=== PATIENT | male | born 1970 | race Hispanic/Latino ===

== ENCOUNTER 2019-04-24 18:30 | Emergency (ER) | payer OTHER, SELFPAY ==
[2019-04-24] MEDS ORDERED: LIDOCAINE 1% MPF 5 ML VIAL ONE (20:03)
--- NOTE | 2019-04-24 21:16 | ER ---
Nurse's Notes [facility] Name: Adolfo Dhaliwal Age: 49 yrs Sex: Male : 1970 Arrival Date: 04/24/2019 Time: 18:32 Bed 17 Private MD: Diagnosis: Topaceous gouty arthritis right elbow Presentation: 04/24 18:37 Presenting complaint: Child states: daughter states that patient is not supposed to eat ss a certain kind of meat because it will make his joints swell. Pt reports he ate a pork chop yesterday and hit his elbow twice since then. Significant swelling noted to R elbow with pustule that is visualized. Transition of care: patient was not received from another setting of care. Onset of symptoms was April 23, 2019. Risk Assessment: Do you want to hurt yourself or someone else? Patient reports no desire to harm self or others. Initial Sepsis Screen: Does the patient meet any 2 criteria? No. Patient's initial sepsis screen is negative. Does the patient have a suspected source of infection? Yes: Skin breakdown/wound. Care prior to arrival: None. 18:37 Method Of Arrival: Ambulatory ss 18:37 Acuity: JOSEE 3 ss Historical: - Allergies: 18:39 No Known Allergies; ss - PMHx: 18:39 Hypertension; ss - PSHx: 18:39 None; ss - Immunization history:: Adult Immunizations unknown. - Social history:: Smoking status: Patient/guardian denies using tobacco. - Ebola Screening: : Patient denies exposure to infectious person Patient denies travel to an Ebola-affected area in the 21 days before illness onset. Screenin:35 Abuse screen: Denies threats or abuse. Denies injuries from another. Nutritional rr5 screening: No deficits noted. Tuberculosis screening: No symptoms or risk factors identified. Fall Risk None identified. Total Verma Fall Scale indicates No Risk (0-24 pts). Assessment: 19:10 General: Appears in no apparent distress. uncomfortable, Behavior is calm, cooperative, rr5 appropriate for age. Pain: Complains of pain in right elbow Pain does not radiate. Pain currently is 7 out of 10 on a pain scale. Quality of pain is described as aching, Pain began gradually, Is intermittent. Neuro: Level of Consciousness is awake, alert, obeys commands, Oriented to person, place, time, situation, Appropriate for age. Cardiovascular: Capillary refill < 3 seconds Patient's skin is warm and dry. Respiratory: Airway is patent Respiratory effort is even, unlabored, Respiratory pattern is regular, symmetrical. GI: No signs and/or symptoms were reported involving the gastrointestinal system. : No signs and/or symptoms were reported regarding the genitourinary system. EENT: No signs and/or symptoms were reported regarding the EENT system. Derm: Skin is intact, Skin temperature is warm Abscess located on right elbow is quarter sized, is red, is raised, white spot at the center of abscess. 19:10 Musculoskeletal: Capillary refill < 3 seconds, Range of motion: intact in all rr5 extremities. 20:35 Reassessment: specimen from the wound sent to laboratory awaiting for result. rr5 21:30 Reassessment: Patient appears in no apparent distress at this time. Patient is alert, rr5 oriented x 3, equal unlabored respirations, skin warm/dry/pink. discharge instruction given and explained without complaints made. instructed to take his BP medication. no dizziness, denies any discomfort Patient denies pain at this time. Patient states feeling better. Patient states symptoms have improved. Vital Signs: 18:35 BP 189 / 114; Pulse 82; Resp 16; Temp 98.2(TE); Pulse Ox 96% on R/A; Weight 81.19 kg; ss Height 5 ft. 6 in. (167.64 cm); Pain 7/10; 19:35 BP 182 / 115; Pulse 83; Resp 19; Pulse Ox 99% ; Pain 7/10; rr5 21:00 BP 172 / 110; Pulse 80; Resp 17; Temp 98; Pulse Ox 99% on R/A; rr5 21:28 BP 171 / 95; Pulse 81; Resp 16; Temp 97.8; Pulse Ox 99% ; rr5 18:35 Body Mass Index 28.89 (81.19 kg, 167.64 cm) ED Course: 18:32 Patient arrived in ED. as 18:35 Arm band placed on right wrist. ss 18:38 Triage completed. ss 19:10 Ramez Meraz RN is Primary Nurse. rr5 19:11 Dewayne Arreola MD is Attending Physician. ps1 19:35 Patient has correct armband on for positive identification. Bed in low position. Call rr5 light in reach. 20:15 Assist provider with aspiration of right elbow using 18 gauge needle, Lidocaine, fluid rr5 removed was Specimen sent to lab. white thick specimen obtain Set up for procedure. Performed by Dewayne Arreola MD Dressed with 4X4s, Neosporin, kerlix Patient tolerated well. 21:13 Froilan Ogden MD is Referral Physician. ps1 21:29 Patient did not have IV access during this emergency room visit. rr5 Administered Medications: 20:10 Drug: Lidocaine (1 %) 5 ml {Note: given by dr. arreola.} Volume: 5 ml; Route: rr5 Infiltration; 21:29 Follow up: Response: No adverse reaction rr5 Outcome: 21:15 Discharge ordered by MD. ps1 21:29 Discharged to home ambulatory, with family. rr5 21:29 Condition: stable 21:29 Discharge instructions given to patient, family, Instructed on discharge instructions, follow up and referral plans. medication usage, Demonstrated understanding of instructions, follow-up care. 21:31 Patient left the ED. rr5 Signatures: Jillian Gutierrez Shelby, RN RN ss Dewayne Arreola MD MD ps1 Ramez Meraz, RN RN rr5
--- NOTE | 2019-04-24 21:17 | EDPHYS ---
Physician Documentation [facility] Name: Adolfo Dhaliwal Age: 49 yrs Sex: Male : 1970 Arrival Date: 04/24/2019 Time: 18:32 Bed 17 Private MD: ED Physician Dewayne Arreola HPI: 04/24 19:47 This 49 yrs old Male presents to ER via Ambulatory with complaints of Abscess. ps1 19:47 Patient has a history of bursitis localized to right elbow for > 1 month. States that ps1 he takes allopurinol. Over last two days he started getting inflammation localized to the tip of the bursal swelling. Appears white like toothpaste with associated erythema. He is afebrile. No new trauma. . Historical: - Allergies: 18:39 No Known Allergies; ss - PMHx: 18:39 Hypertension; ss - PSHx: 18:39 None; ss - Immunization history:: Adult Immunizations unknown. - Social history:: Smoking status: Patient/guardian denies using tobacco. - Ebola Screening: : Patient denies exposure to infectious person Patient denies travel to an Ebola-affected area in the 21 days before illness onset. ROS: 19:47 Constitutional: Negative for fever, chills, and weight loss, Eyes: Negative for injury, ps1 pain, redness, and discharge, ENT: Negative for injury, pain, and discharge, Cardiovascular: Negative for chest pain, palpitations, and edema, Respiratory: Negative for shortness of breath, cough, wheezing, and pleuritic chest pain, Abdomen/GI: Negative for abdominal pain, nausea, vomiting, diarrhea, and constipation, Neuro: Negative for headache, weakness, numbness, tingling, and seizure, Psych: Negative for depression, anxiety, suicide ideation, homicidal ideation, and hallucinations. 19:47 MS/extremity: Positive for swelling, tenderness, warmth, of the right elbow. Exam: 19:47 Constitutional: This is a well developed, well nourished patient who is awake, alert, ps1 and in no acute distress. Head/Face: Normocephalic, atraumatic. Eyes: Pupils equal round and reactive to light, extra-ocular motions intact. Lids and lashes normal. Conjunctiva and sclera are non-icteric and not injected. Chest/axilla: Normal chest wall appearance and motion. Nontender with no deformity. No lesions are appreciated. Cardiovascular: Regular rate and rhythm. No gallops, murmurs, or rubs. Normal PMI, no JVD. No pulse deficits. Respiratory: Lungs have equal breath sounds bilaterally, clear to auscultation and percussion. No rales, rhonchi or wheezes noted. No increased work of breathing, no retractions or nasal flaring. Skin: Warm, dry with normal turgor. Normal color with no rashes, no lesions, and no evidence of cellulitis. Neuro: Awake and alert, GCS 15, oriented to person, place, time, and situation. Cranial nerves II-XII grossly intact. Sensory grossly intact. 19:47 Musculoskeletal/extremity: Extremities: grossly normal except: noted in the right elbow: pain, swelling, tenderness, Appears to be more tophaceous in nature. Possible inflammatory\E\. Vital Signs: 18:35 BP 189 / 114; Pulse 82; Resp 16; Temp 98.2(TE); Pulse Ox 96% on R/A; Weight 81.19 kg; ss Height 5 ft. 6 in. (167.64 cm); Pain 7/10; 19:35 BP 182 / 115; Pulse 83; Resp 19; Pulse Ox 99% ; Pain 7/10; rr5 21:00 BP 172 / 110; Pulse 80; Resp 17; Temp 98; Pulse Ox 99% on R/A; rr5 21:28 BP 171 / 95; Pulse 81; Resp 16; Temp 97.8; Pulse Ox 99% ; rr5 18:35 Body Mass Index 28.89 (81.19 kg, 167.64 cm) Procedures: 21:16 Joint Treatment: Aspiration of right elbow using 18 gauge needle, Removed tophaceous ps1 gout Dressed with 4x4s, Patient tolerated well. MDM: 21:12 Data reviewed: vital signs, nurses notes, lab test result(s), and as a result, I will ps1 discharge patient. Counseling: I had a detailed discussion with the patient and/or guardian regarding: the historical points, exam findings, and any diagnostic results supporting the discharge/admit diagnosis, the need for outpatient follow up, a orthopedic surgeon. 21:15 Patient medically screened. ps1 04/24 20:11 Order name: Fluid Crystals; Complete Time: 21:12 ps1 Administered Medications: 20:10 Drug: Lidocaine (1 %) 5 ml {Note: given by dr. arreola.} Volume: 5 ml; Route: rr5 Infiltration; 21:29 Follow up: Response: No adverse reaction rr5 Disposition: 04/24/19 21:15 Discharged to Home. Impression: Topaceous gouty arthritis right elbow. - Condition is Stable. - Discharge Instructions: Gout. - Medication Reconciliation Form, Thank You Letter, Antibiotic Education, Prescription Opioid Use, Work release form form. - Follow up: Froilan Ogden MD; When: Upon discharge from the Emergency Department; Reason: Further diagnostic work-up, Recheck today's complaints. Follow up: Emergency Department; When: As needed; Reason: Fever > 102 F, Worsening of condition. - Problem is an ongoing problem. - Symptoms have worsened. Signatures: Dispatcher [employer] EDID Keisha Starkey RN RN ss Dewayne Arreola MD MD ps1 Ramez Meraz RN RN rr5 Corrections: (The following items were deleted from the chart) 20:45 20:11 FLUID CELL COUNT,BODY+H.LAB.BRZ ordered. [facility] EDMS 21:31 21:15 04/24/2019 21:15 Discharged to Home. Impression: Topaceous gouty arthritis right rr5 elbow. Condition is Stable. Forms are Medication Reconciliation Form, Thank You Letter, Antibiotic Education, Prescription Opioid Use. Follow up: Froilan Ogden; When: Upon discharge from the Emergency Department; Reason: Further diagnostic work-up, Recheck today's complaints. Follow up: Emergency Department; When: As needed; Reason: Fever > 102 F, Worsening of condition. Problem is an ongoing problem. Symptoms have worsened. ps1
== END 2019-04-24 21:31 | disposition home or self-care (01) ==
LOC: ER 18:30
PROC: 0RJJ3ZZ Inspection of Right Shoulder Joint, Percutaneous Approach (ICD-10-PCS; principal; 2019-04-24)
DX: M10.011 Idiopathic gout, right shoulder (principal); I10 Essential (primary) hypertension
CPT/HCPCS: 89060; 99284

== ENCOUNTER 2025-03-09 23:46 | Emergency (ER) | payer SELFPAY ==
--- OUTSIDE RECORDS SUMMARY | 2025-03-09 23:48 | XMS REPORT | Continuity of Care Document ---
Author Name Unknown Address [address] [place] [id number] [facility] Address [address] [address] [address] [place] [address] Care Team Providers Care Operations Engineer Name Role Phone [facility]_WalkInSchedul Attending Clinician Unavail able [facility]WalkInSchedul Admitting Clinician Unavail able Payers Payer Name Policy Type Policy Number Effective Date Expirati on Date Source Problems Condition Name Condition Details Condition Category Status Onset Date Resolution Date Last Treatment Date Treating Clinician Comments Source Gout Gout Problem Active 2022-10 00:00: 00 [facility] Essential hypertensi on Essential Hypertensi on Problem Active 2022-10 00:00: 00 [facility] Social History Smoking Status Start Date Stop Date Source Never Smoker [facility] Medications Ordered Medication Name Filled Medication Name Start Date Stop Date Current Medication? Ordering Clinician Indication Dosage Frequency Signature (SIG) Comments Components Source amlodipine 5 mg tablet Take 1 tablet every day by oral route for 90 days. amlodipine 5 mg tablet Take 1 tablet every day by oral route for 90 days. No 1 Q1D amlodipine 5 mg tablet Take 1 tablet every day by oral route for 90 days. [facility] bisoprolol fumarate 10 mg tablet Take 1 tablet every day by oral route. bisoprolol fumarate 10 mg tablet Take 1 tablet every day by oral route. No 1 Q1D bisoprolol fumarate 10 mg tablet Take 1 tablet every day by oral route. [facility] naproxen 500 mg tablet Take 1 tablet twice a day by oral route as needed. naproxen 500 mg tablet Take 1 tablet twice a day by oral route as needed. No 1 BID naproxen 500 mg tablet Take 1 tablet twice a day by oral route as needed. [facility] olmesartan 40 mg tablet Take 1 tablet every day by oral route. olmesartan 40 mg tablet Take 1 tablet every day by oral route. No 1 Q1D olmesartan 40 mg tablet Take 1 tablet every day by oral route. [facility] prednisone 20 mg tablet Take 2 tablets every day by oral route. prednisone 20 mg tablet Take 2 tablets every day by oral route. No 2 Q1D prednisone 20 mg tablet Take 2 tablets every day by oral route. [facility] allopurinol 200 mg tablet Take 1 tablet twice a day by oral route for 90 days. allopurinol 200 mg tablet Take 1 tablet twice a day by oral route for 90 days. No 1 BID allopurino l 200 mg tablet Take 1 tablet twice a day by oral route for 90 days. [facility] Immunizations Ordered Immunization Name Filled Immunization Name Date Status Comments Source tetanus toxoid, unspecified formulation tetanus toxoid, unspecified formulation Unknown Completed [facility] Vital Signs Vital Name Observation Time Observation Value Comments S ource BMI (Body Mass Index) 2024-03-26 00:00:00 26.6 kg/m2 [facility] BP Systolic 2024-03-26 00:00:00 150 mm[Hg] [facility] Height 2024-03-26 00:00:00 67 [in_i] [facility] BP Diastolic 2024-03-26 00:00:00 92 mm[Hg] [facility] Body Weight 2024-03-26 00:00:00 2716.8 [oz_av] [facility] Body Weight 2024-01-11 00:00:00 2722 [oz_av] [facility] BP Systolic 2024-01-11 00:00:00 138 mm[Hg] [facility] BP Diastolic 2024-01-11 00:00:00 83 mm[Hg] [facility] Height 2024-01-11 00:00:00 67 [in_i] [facility] BMI (Body Mass Index) 2024-01-11 00:00:00 26.6 kg/m2 [facility] Encounters Start Date/Time End Date/Time Encounter Type Admission Type Attending Clinicians Care Facility Care Department Encounter ID Source 2024-03-26 00:00:00 2024-03-26 00:00:00 [place], [place]SE [place]OVER: [id number] [id number] , Ph. [facility] - _CPC_Need fer Office [id number] [facility] 2024-01-11 00:00:00 2024-01-11 00:00:00 Outpatient [facility]Walk InSchedul [facility] [id number] [facility] 2024-01-11 00:00:00 2024-01-11 00:00:00 [place], HOUSE MOVER: [address] [phone] , Ph. [facility] - GC_CPC_Need fer Office [id number] [facility] 2023-10-04 00:00:00 2023-10-04 00:00:00 Outpatient [facility]Walk InSchedul [facility] [id number] [facility] 2023-10-03 00:00:00 2023-10-03 00:00:00 Outpatient [facility] [id number] [facility]
[2025-03-10] MEDS ORDERED: ONDANSETRON 4 MG/2 ML VIAL ONE (00:04)
[2025-03-10] MEDS ORDERED: MORPHINE 4 MG/ML SYR ONE (00:04)
[2025-03-10 00:54] LABS: Absolute Eosinophils 0.1 K/uL (0-0.5); Absolute Lymphocytes (CBC) 0.2 K/uL (0.7-4.9); Absolute Monocytes 0.7 K/uL (0.1-1.3); Absolute Neutrophil 13.5 K/uL (1.8-8.0); Basophils % 0.1 % (0-1.3); Eosinophils % 0.6 % (0-4.4); Hematocrit 42.9 % (39.6-49.0); Hemoglobin 14.9 g/dL (13.6-17.9); Lymphocytes % 1.5 % (15.3-44.8); MCH 33.8 pg (27.0-35.0); MCHC 34.6 g/dL (32.0-36.0); MCV 97.5 fL (80-100); MPV 6.5 fL (7.6-11.3); Neutrophils % 92.8 % (41.7-73.7); Platelets 394 thou/uL (152-406); Red Cell Distribution Width 12.8 % (12.1-15.2)
[2025-03-10 00:55] LABS: Anion Gap 13.3 mEq/L (5.0-15.0); Potassium 4.3 mEq/L (3.5-5.1)
[2025-03-10] MEDS ORDERED: FENTANYL CITR 100 MCG/2 ML ONE (01:55)
[2025-03-10] MEDS ORDERED: droPERidol 5 MG/2 ML VIAL ONE (01:55)
[2025-03-10] MEDS ORDERED: METOCLOPRAMIDE 10 MG/2mL INJ ONE (01:55)
[2025-03-10] MEDS ORDERED: NA CHLORIDE 0.9% 100 ML ONE (01:56)
--- NOTE | 2025-03-10 01:57 | RAD REPORT ---
EXAM: CT Lumbar Spine Without Intravenous Contrast CLINICAL HISTORY: The patient is 54 years old and is Male; PAIN TECHNIQUE: Axial computed tomography images of the lumbar spine without intravenous contrast. Sagittal and c oronal reformatted images were created and reviewed. This CT exam was performed using one or more of the following dose reduction techniques: automated exposure control, adjustment of the mA and/or kV according to patient size, and/or use of iterative reconstruction technique. COMPARISON: No relevant prior studies available. FINDINGS: VERTEBRAE: The vertebral body heights and alignment are maintained. There is no acute fracture. DISCS/SPINAL CANAL/NEURAL FORAMINA: Ankylosis of the bilateral SI joints is noted. Intervertebr al disc space narrowing with anterior osteophyte formation from L2 through S1 is noted. Disc bulges at L3-S1 causing effacement upon the anterior thecal sac and bilateral neural foraminal narrowing is noted most prominent at L4-L5. SOFT TISSUES: The soft tissues are normal. IMPRESSION: Moderate spondylosis of the lumbar spine most prominent at L4-L5. Electronically signed by: Lenora Mcgill MD 03/10/2025 01:54 AM CDT Due to temporary technical issues with the PACS/[employer] reporting system, reports are being ramez d by the in-house radiologist without review as a courtesy to ensure prompt reporting the interpreting radiologist is fully responsible for the content of the report. Transcribed Date/Time: 03/10/2025 1:57 AM
[2025-03-10 03:08] LABS: Band Neutrophils 17 % (0-1); Blood Morphology Comment NOT SEEN (NOT SEEN); Differential Total Cells Count 100; Lymphocytes 2 % (15-42); Monocytes 4 % (0-10); Platelet Estimate ADEQ; Reactive Lymphocytes 3 %; Segmented Neutrophils 74 % (40-80)
[2025-03-10] MEDS ORDERED: KETAMINE HCL IN 0.9 % NACL 50 MG/5 ML SYRINGE IV ONE (03:09)
[2025-03-10 03:10] LABS: Specific Gravity 1.019 (1.005-1.030); Sqamous Epithelial <5 /HPF (None Seen); Urine Bacteria None Seen /HPF (<20); Urine Bilirubin NEGATIVE (Negative); Urine Blood Negative (Negative); Urine Clarity Clear (Clear); Urine Color Yellow (Yellow); Urine Culture Reflex Order NOT NEEDED; Urine Glucose 1+ (Negative); Urine Ketones NEGATIVE (Negative); Urine Microscopic Reflex YN ORDER UMIC; Urine Mucus Slight /HPF (None Seen); Urine Nitrite NEGATIVE (Negative); Urine Protein TRACE (Negative); Urine RBC <5 /HPF (None Seen); Urine Urobilinogen Normal (Normal); Urine WBC None Seen /HPF (<5); Urine pH 5.5 (5.0-7.0)
[2025-03-10] MEDS ORDERED: HYDROMORPHONE HCL 1 MG/ML INJ ONE ×2 (03:39→05:41)
--- NOTE | 2025-03-10 03:47 | EDPHYS ---
Physician Documentation [facility] Name: Adolfo Dhaliwal Age: 54 yrs Sex: Male : 1970 Arrival Date: 03/09/2025 Time: 23:46 Bed 7 Private MD: ED Physician Silas Jimenez HPI: 03/10 00:07 This 54 yrs old Male presents to ER via Wheelchair with complaints of Low Back kb Pain, unable to walk due to pain. 00:07 Pt is a 54 year old male who presents for pain across low back that started upon waking kb this morning. Denies injury or trauma. Denies urinary symptoms. States he has not been able to walk due to pain. Denies bowel/bladder incontinence/issues. . Historical: - Allergies: 00:02 No Known Allergies; vc1 - Home Meds: 00:02 hydrocortisone 0.5 % Topical cream [Active]; hydroxyzine HCl 25 mg Oral tablet 3 times vc1 per day [Active]; prednisone 10 mg Oral Tablet, Dose Pack [Active]; bisoprolol fumarate 10 mg oral tablet daily [Active]; ardosons [Active]; - PMHx: 00:02 Hypertension; Rheumatoid arthritis; vc1 - PSHx: 00:02 None; vc1 - Immunization history:: Client reports having NOT received the Covid vaccine. - Infectious Disease History:: Denies. - Social history:: Smoking status: Patient denies any tobacco usage or history of. ROS: 00:05 Constitutional: As per HPI kb Exam: 00:05 Constitutional: This is a well developed, well nourished patient who is awake, alert, kb and in no acute distress. Head/Face: Normocephalic, atraumatic. ENT: Moist Mucous membranes Cardiovascular: Regular rate Respiratory: Respirations even and unlabored. No increased work of breathing. Talking in full sentences MS/ Extremity: Pulses equal, no cyanosis. Neurovascular intact. Full, normal range of motion. Neuro: Awake and alert, GCS 15, oriented to person, place, time, and situation. 00:05 Back: pain, that is severe, of the low back area, ROM is painful, decreased, CVA tenderness, is absent, vertebral tenderness, is appreciated at L4 and L5, 00:05 Skin: rash a moderate rash is noted, on the low back area, pt reports this rash is chronic, Vital Signs: 00:00 BP 143 / 85; Pulse 73; Resp 14; Temp 98.8; Pulse Ox 100% ; Weight 74.84 kg; Height 5 vc1 ft. 6 in. ; Pain 10/10; 01:34 BP 112 / 72; Pulse 73; Resp 18; Temp 98.8; Pulse Ox 99% ; Pain 6/10; bm8 02:55 BP 110 / 75; Pulse 70; Resp 16; Temp 98.8; Pulse Ox 100% ; Pain 7/10; bm8 04:45 BP 121 / 78; Pulse 75; Resp 16; Temp 98.7; Pulse Ox 100% ; Pain 7/10; bm8 05:30 BP 107 / 60; Pulse 81; Resp 16; Pulse Ox 100% ; jj7 06:30 BP 111 / 62; Pulse 100; Resp 20; Temp 97.9; Pulse Ox 100% ; jj7 00:00 Body Mass Index 26.63 (74.84 kg, 167.64 cm) vc1 00:00 Pain Scale: Adult vc1 01:34 Pain Scale: Adult bm8 02:55 Pain Scale: Adult bm8 04:45 Pain Scale: Adult bm8 [place] Coma Score: 01:34 Eye Response: spontaneous(4). Motor Response: obeys commands(6). Verbal Response: bm8 oriented(5). Total: 15. 02:55 Eye Response: spontaneous(4). Motor Response: obeys commands(6). Verbal Response: bm8 oriented(5). Total: 15. 04:45 Eye Response: spontaneous(4). Motor Response: obeys commands(6). Verbal Response: bm8 oriented(5). Total: 15. MDM: 03/09 23:50 Medical Screening Exam initiated kb 03/10 00:09 Data reviewed: vital signs, nurses notes. Historians other than the Patient: Family kb Member: family. ED course: Pt was able to transfer from wheelchair to stretcher with assist. 00:46 Transition of care: After a detail discussion of the patient's case, care is kb transferred to Silas Jimenez MD. 03:42 Differential diagnosis: arthritis, strain, fracture, sciatica, contusion, Herniated sp4 disc UTI. ED course: CT Lumbar Spine Without Intravenous Contrast CLINICAL HISTORY: The patient is 54 years old and is Male; PAIN TECHNIQUE: Axial computed tomography images of the lumbar spine without intravenous contrast. Sagittal and coronal reformatted images were created and reviewed. This CT exam was performed using one or more of the following dose reduction techniques: automated exposure control, adjustment of the mA and/or kV according to patient size, and/or use of iterative reconstruction technique. COMPARISON: No relevant prior studies available. FINDINGS: VERTEBRAE: The vertebral body heights and alignment are maintained. There is no acute fracture. DISCS/SPINAL CANAL/NEURAL FORAMINA: Ankylosis of the bilateral SI joints is noted. Intervertebral disc space narrowing with anterior osteophyte formation from L2 through S1 is noted. Disc bulges at L3-S1 causing effacement upon the anterior thecal sac and bilateral neural foraminal narrowing is noted most prominent at L4-L5. SOFT TISSUES: The soft tissues are normal. IMPRESSION: Moderate spondylosis of the lumbar spine most prominent at L4-L5. . 04:09 ED course: Patient was discussed with neurology at [facility] and sp4 accepted as a transfer to the hospital floor for additional evaluation.. 05:04 Consideration of Admission/Observation Escalation of care including sp4 admission/observation considered. Management of patient was discussed with the following: Side Piece Coverer: [facility] . ED course: Accepted by [facility]. 05:23 ED course: CT revealed - IMPRESSION: Moderate spondylosis of the lumbar spine most sp4 prominent at L4-L5. Electronically signed by: Lneora Mcgill MD 03/10/2025 01:54 AM. ED course: Patient could not be accommodated at [facility] . [facility] . 03/09 23:56 Order name: CBC with Diff; Complete Time: 03:21 kb 03/09 23:56 Order name: BMP; Complete Time: 03:21 kb 03/09 23:56 Order name: UA Rfx Jorge Cult if indicated; Complete Time: 03:21 kb 03/10 01:00 Order name: Manual Differential; Complete Time: 03:21 EDMS 03/09 23:56 Order name: CT Lumbar Spine Wo Con kb 03/09 23:56 Order name: IV Start; Complete Time: 00:13 kb Administered Medications: 00:13 Drug: morphine IVP or IV 4 mg IVP once over 4 mins Route: IVP; Infused Over: 4 mins; bm8 Site: left forearm; 01:33 Follow up: Response: No adverse reaction bm8 00:13 Drug: Ondansetron IVP 4 mg IVP once; over 2 minutes Route: IVP; Site: left forearm; bm8 01:33 Follow up: Response: No adverse reaction bm8 02:06 Drug: fentaNYL (PF) IVP 100 mcg IVP once Route: IVP; Site: left forearm; bm8 03:42 Follow up: Response: Pain is unchanged, physician notified jj7 02:06 Drug: metoCLOPramide IVP 10 mg IVP once; over 1 to 2 minutes Route: IVP; Site: left bm8 forearm; 03:42 Follow up: Response: No adverse reaction jj7 02:06 Drug: Droperidol IVP 2.5 mg IVP once Route: IVP; Site: left forearm; bm8 03:41 Follow up: Response: Pain is unchanged, physician notified jj7 03:13 Drug: Ketamine IVP 50 mg IVP once Route: IVP; Site: left forearm; bm8 03:41 Follow up: Response: Pain is unchanged, physician notified jj7 03:41 Drug: HYDROmorphone IVP 1 mg IVP once Route: IVP; Site: left antecubital; jj7 04:46 Follow up: Response: No adverse reaction bm8 05:44 Drug: HYDROmorphone IVP 1 mg IVP once Route: IVP; Site: left forearm; bm8 06:50 Follow up: Response: Pain is decreased jj7 06:45 Drug: Haloperidol IVP 5 mg IVP once Route: IVP; Site: left forearm; jj7 06:50 Follow up: Response: No adverse reaction jj7 Disposition: 03:35 Co-signature as Attending Physician, Silas Jimenez MD I agree with the assessment sp4 and plan of care. I reviewed the patient's care provided by the Advanced Practice Provider and agree with the diagnosis and treatment plan. Disposition Summary: 03/10/25 03:46 Transfer Ordered Notes: Reason: Higher level of care sp4 Condition: Stable sp4 Problem: new sp4 Symptoms: have improved sp4 Transfer Location: [facility](03/10/25 05:25) sp4 Accepting Physician: [facility](03/10/25 06:50) jj7 Diagnosis - Cauda equina syndrome sp4 - Lumbar disc herniation L3-L4 level and L4-L5 level with cauda equina compression sp4 - Acute lumbar radiculopathy sp4 - Bilateral lower extremity weakness sp4 Forms: - Medication Reconciliation Form sp4 - SBAR form sp4 Signatures: Dispatcher [employer] EDMS Rayne Mejia, STRAIGHTENING PRESS OPERATOR-C STRAIGHTENING PRESS OPERATOR-Ckb Ling Shelley RN RN vc1 Nely Bustillos RN RN jj7 Silas Jimenez MD MD sp4 Wes Lyle RN RN bm8 Corrections: (The following items were deleted from the chart) 00:07 00:05 Skin: rash a moderate rash is noted, on the low back area, kb kb 00:09 00:07 Pt is a 54 year old male who presents for pain across low back that started upon kb waking this morning. Denies injury or trauma. Denies urinary symptoms. States he has not been able to walk due to pain. . kb 05:25 03:46 [facility]'s attending physician sp4 sp4 05:25 03:46 [facility] sp4 sp4 06:50 05:25 [facility] sp4 jj7
--- NOTE | 2025-03-10 03:47 | ER ---
Nurse's Notes [facility] Name: Adolfo Dhaliwal Age: 54 yrs Sex: Male : 1970 Arrival Date: 03/09/2025 Time: 23:46 Bed 7 Private MD: Diagnosis: Cauda equina syndrome;Lumbar disc herniation L3-L4 level and L4-L5 level with cauda equina compression;Acute lumbar radiculopathy;Bilateral lower extremity weakness Presentation: 03/10 00:00 Chief complaint: Patient states: woke up with with severe lower back pain. Coronavirus vc1 screen: Client denies travel out of the [place] in the last 14 days. At this time, the client does not indicate any symptoms associated with coronavirus-19. Ebola Screen: Patient negative for fever greater than or equal to 101.5 degrees Fahrenheit, and additional compatible Ebola Virus Disease symptoms Patient denies exposure to infectious person. Patient denies travel to an Ebola-affected area in the 21 days before illness onset. No symptoms or risks identified at this time. Initial Sepsis Screen: Does the patient meet any 2 criteria? No. Patient's initial sepsis screen is negative. Does the patient have a suspected source of infection? No. Patient's initial sepsis screen is negative. Risk Assessment: Do you want to hurt yourself or someone else? Patient reports no desire to harm self or others. Onset of symptoms was March 09, 2025. 00:00 Method Of Arrival: Wheelchair vc1 00:00 Acuity: JOSEE 3 vc1 Triage Assessment: 00:05 General: Appears distressed, uncomfortable, Behavior is cooperative. Pain: Complains of vc1 pain in low back area Pain does not radiate. Pain currently is 10 out of 10 on a pain scale. Quality of pain is described as sharp, Pain began suddenly, Is continuous, Aggravated by increased activity, repositioning, Noted to be grimacing, resistant to movement. EENT: No deficits noted. No signs and/or symptoms were reported regarding the EENT system. Neuro: Level of Consciousness is awake, alert, obeys commands, Oriented to person, place, time, situation, Appropriate for age. Cardiovascular: Capillary refill < 3 seconds Patient's skin is warm and dry. Respiratory: Airway is patent Respiratory effort is even, unlabored, Respiratory pattern is regular, symmetrical. GI: No deficits noted. No signs and/or symptoms were reported involving the gastrointestinal system. : No deficits noted. No signs and/or symptoms were reported regarding the genitourinary system. Derm: Skin is intact, is healthy with good turgor, Skin is dry, Skin is normal, Skin temperature is warm. Musculoskeletal: Range of motion: intact in all extremities, Reports pain in low back area Pain is 10 out of 10 on a pain scale. Historical: - Allergies: 00:02 No Known Allergies; vc1 - Home Meds: 00:02 hydrocortisone 0.5 % Topical cream [Active]; hydroxyzine HCl 25 mg Oral tablet 3 times vc1 per day [Active]; prednisone 10 mg Oral Tablet, Dose Pack [Active]; bisoprolol fumarate 10 mg oral tablet daily [Active]; ardosons [Active]; - PMHx: 00:02 Hypertension; Rheumatoid arthritis; vc1 - PSHx: 00:02 None; vc1 - Immunization history:: Client reports having NOT received the Covid vaccine. - Infectious Disease History:: Denies. - Social history:: Smoking status: Patient denies any tobacco usage or history of. Screenin:00 [facility] ED Fall Risk Assessment (Adult) History of falling in the last 3 months, jj7 including since admission No falls in past 3 months (0 pts) Confusion or Disorientation No (0 pts) Intoxicated or Sedated No (0 pts) Impaired Gait No (0 pts) Mobility Assist Device Used No (0 pt) Altered Elimination No (0 pt) Score/Fall Risk Level 0 - 2 = Low Risk Oriented to surroundings, Maintained a safe environment, Educated pt \T\ family on fall prevention, incl call for assistance when getting out of bed, Assessed \T\ reinforced patient's understanding of fall precautions. Abuse screen: Denies threats or abuse. Nutritional screening: No deficits noted. Tuberculosis screening: No symptoms or risk factors identified. Assessment: 00:00 General: Appears in no apparent distress. uncomfortable, Behavior is calm, cooperative, jj7 appropriate for age. Pain: Complains of pain in back. Derm: Rash noted that is itchy, red, urticaria, on back, right hand, left hand, right arm, left arm, right leg and left leg. Musculoskeletal: BACK PAIN. 01:34 Reassessment: Patient appears in no apparent distress at this time. Patient and/or bm8 family updated on plan of care and expected duration. Pain level reassessed. Patient is alert, oriented x 3, equal unlabored respirations, skin warm/dry/pink. Patient states feeling better. Patient states symptoms have improved. Pain: Complains of pain in low back area Pain currently is 6 out of 10 on a pain scale. 02:55 Reassessment: Patient appears in no apparent distress at this time. Patient and/or bm8 family updated on plan of care and expected duration. Pain level reassessed. Patient is alert, oriented x 3, equal unlabored respirations, skin warm/dry/pink. Pain: Complains of pain in low back area Pain currently is 7 out of 10 on a pain scale. 02:55 Reassessment: pt reports no improvement since last medication administration. bm8 04:45 Reassessment: Patient appears in no apparent distress at this time. Patient and/or bm8 family updated on plan of care and expected duration. Pain level reassessed. Patient is alert, oriented x 3, equal unlabored respirations, skin warm/dry/pink. Pain: Complains of pain in low back area Pain currently is 7 out of 10 on a pain scale. 05:55 Reassessment: report given to ELLE Roberts \T\ NJMARQUIS Parikh. bm8 06:45 Reassessment: [facility] AT BEDSIDE TO TRANSFER PT. jj7 Vital Signs: 00:00 BP 143 / 85; Pulse 73; Resp 14; Temp 98.8; Pulse Ox 100% ; Weight 74.84 kg; Height 5 vc1 ft. 6 in. ; Pain 10/10; 01:34 BP 112 / 72; Pulse 73; Resp 18; Temp 98.8; Pulse Ox 99% ; Pain 6/10; bm8 02:55 BP 110 / 75; Pulse 70; Resp 16; Temp 98.8; Pulse Ox 100% ; Pain 7/10; bm8 04:45 BP 121 / 78; Pulse 75; Resp 16; Temp 98.7; Pulse Ox 100% ; Pain 7/10; bm8 05:30 BP 107 / 60; Pulse 81; Resp 16; Pulse Ox 100% ; jj7 06:30 BP 111 / 62; Pulse 100; Resp 20; Temp 97.9; Pulse Ox 100% ; jj7 00:00 Body Mass Index 26.63 (74.84 kg, 167.64 cm) vc1 00:00 Pain Scale: Adult vc1 01:34 Pain Scale: Adult bm8 02:55 Pain Scale: Adult bm8 04:45 Pain Scale: Adult bm8 [place] Coma Score: 01:34 Eye Response: spontaneous(4). Motor Response: obeys commands(6). Verbal Response: bm8 oriented(5). Total: 15. 02:55 Eye Response: spontaneous(4). Motor Response: obeys commands(6). Verbal Response: bm8 oriented(5). Total: 15. 04:45 Eye Response: spontaneous(4). Motor Response: obeys commands(6). Verbal Response: bm8 oriented(5). Total: 15. ED Course: 03/09 23:48 Patient arrived in ED. gm2 23:50 Rayne Mejia FNP-C is PHCP. kb 23:50 Silas Jimenez MD is Attending Physician. kb 23:53 Nely Bustillos RN is Primary Nurse. jj7 03/10 00:00 Patient has correct armband on for positive identification. Bed in low position. Call jj7 light in reach. Adult w/ patient. Provided Education on: USE OF CALL ANSARI. 00:00 Arm band placed on right wrist. Patient placed in an exam room, on a stretcher, on vc1 pulse oximetry. 00:02 Triage completed. vc1 00:20 No provider procedures requiring assistance completed. Initial lab(s) drawn, by ED 8 staff, sent to lab. Inserted saline lock: 20 gauge in left forearm, using aseptic technique. Blood collected. Flushed with 10 mL NS. Patient maintains SpO2 saturation greater than 95% on room air. 00:34 CT Lumbar Spine Wo Con In Process Unspecified. EDMS 05:25 initiated transfer with [facility] per radha at transfer center patient was accepted to [facility] however they would be put on a wait list, advised to transfer center that we would be initiating with another facility. 05:32 initiated transfer with [facility] spoke with Lenora SHAFFER. 05:37 patient was accepted to [facility] Kati per search marketing coordinator to Catherine Maya vk accepted at 0523 per Lenora Stover, Accepting admin Lenora Stover \T\[id number] , RM: [id number] Report # [id number]. 06:48 Patient transferred, IV remains in place. jj7 Administered Medications: 00:13 Drug: morphine IVP or IV 4 mg IVP once over 4 mins Route: IVP; Infused Over: 4 mins; bm8 Site: left forearm; 01:33 Follow up: Response: No adverse reaction bm8 00:13 Drug: Ondansetron IVP 4 mg IVP once; over 2 minutes Route: IVP; Site: left forearm; bm8 01:33 Follow up: Response: No adverse reaction bm8 02:06 Drug: fentaNYL (PF) IVP 100 mcg IVP once Route: IVP; Site: left forearm; bm8 03:42 Follow up: Response: Pain is unchanged, physician notified jj7 02:06 Drug: metoCLOPramide IVP 10 mg IVP once; over 1 to 2 minutes Route: IVP; Site: left bm8 forearm; 03:42 Follow up: Response: No adverse reaction jj7 02:06 Drug: Droperidol IVP 2.5 mg IVP once Route: IVP; Site: left forearm; bm8 03:41 Follow up: Response: Pain is unchanged, physician notified jj7 03:13 Drug: Ketamine IVP 50 mg IVP once Route: IVP; Site: left forearm; bm8 03:41 Follow up: Response: Pain is unchanged, physician notified jj7 03:41 Drug: HYDROmorphone IVP 1 mg IVP once Route: IVP; Site: left antecubital; jj7 04:46 Follow up: Response: No adverse reaction bm8 05:44 Drug: HYDROmorphone IVP 1 mg IVP once Route: IVP; Site: left forearm; bm8 06:50 Follow up: Response: Pain is decreased jj7 06:45 Drug: Haloperidol IVP 5 mg IVP once Route: IVP; Site: left forearm; jj7 06:50 Follow up: Response: No adverse reaction jj7 Medication: 00:00 VIS not applicable for this client. jj7 Outcome: 03:46 ER care complete, transfer ordered by MD. jett 06:47 Transferred by [facility]. to [facility], Transfer jj7 form completed. X-rays sent w/ patient. 06:47 Condition: stable 06:50 Patient left the ED. jj7 Signatures: Dispatcher [employer] EDRayne Rojas FNP-C FNP-Ling Nicole RN RN vc1 Nely Bustillos RN RN jj7 Silas Jimenez MD MD sp4 Maria E Santos 2 Briseida Tan Brad RN RN bm8 Corrections: (The following items were deleted from the chart) 00:13 00:13 Ondansetron IVP 4 mg IVP in left antecubital bm8 bm8
[2025-03-10] MEDS ORDERED: HALOPERIDOL LACT 5 MG/ML INJ ONE (06:42)
[2025-03-10 07:09] VITALS: O2SAT 100
[2025-03-10 07:14] VITALS: BP 111/62; TEMP 97.9
== END 2025-03-10 06:50 | disposition short-term general hospital (02) ==
LOC: ER 23:46
DX: M51.16 Intervertebral disc disorders with radiculopathy, lumbar region (principal); G83.4 Cauda equina syndrome; R53.1 Weakness
CPT/HCPCS: 72131; J1171; J1630; J1790; J2405; J2765; J3010; J3490